=== PATIENT | male | born 1985 | race Caucasian/White ===

== ENCOUNTER 2017-12-07 21:34 | Observation (INO) | payer OTHER ==
[2017-12-08] MEDS ORDERED: NS 0.9% 1000 ML* 1,000 ML IV ONE (00:09)
[2017-12-08] MEDS ORDERED: Ketorolac INJ* 30 MG/ML 1 ML VIAL IV PUSH ONE (00:09)
[2017-12-08] MEDS ORDERED: Ondansetron INJ* 2 MG/ML VIAL IV ONE (00:09)
[2017-12-08 00:45] LABS: EGFR Non-African American 87.6 (>60)
[2017-12-08 00:47] LABS: ABS Basophils 0 10^3/ul (0-0.2); ABS Eosinophils 0 10^3/ul (0-0.6); ABS Lymphocytes 1.2 10^3/ul (1.0-4.8); ABS Neutrophils 14.6 10^3/ul (1.5-7.7); ABS Nucleated RBC 0 10^3/ul; Eosinophil % 0.1 % (0-6); Hematocrit 44 % (42-52); Hemoglobin 15.3 g/dl (14.0-18.0); Lymphocyte % 7.3 % (25-47); Mean Corpuscular HGB Conc 35 g/dl (31-36); Mean Corpuscular Hemoglobin 33 pg (27-31); Mean Corpuscular Volume 94 fL (80-94); Mean Platelet Volume 8.3 um3 (7.4-10.4); Nucleated Red Blood Cells % 0; Platelet Count 210 10^3/ul (150-450); Red Blood Count 4.66 10^6/ul (4.0-5.4); Red Cell Distribution Width 13 % (10.5-15); White Blood Count 16.9 10^3/ul (3.5-10.8)
--- NOTE | 2017-12-08 01:40 | ED ---
GI/ HPI - HPI Summary HPI Summary: 32-year-old male presents with left lower quadrant pain for the past couple hours. He states it radiates up to his left flank. He denies any testicular pain. Denies any pain with urination. He denies any hematuria. He has history of kidney stones but states that this does not feel the same. He states nothing makes it better or worse. He admits nausea vomiting. He denies any diarrhea. Denies any previous belly surgeries. Denies any chest pain or shortness breath. He hasn't taking anything for his pain. - History of Current Complaint Chief Complaint: EDAbdPain Time Seen by Provider: 12/08/17 00:05 Stated Complaint: FLANK PAIN Pain Intensity: 6 - Allergy/Home Medications Allergies/Adverse Reactions: Allergies Allergy/AdvReac Type Severity Reaction Status Date / Time No Known Allergies Allergy Verified 12/07/17 21:46 Home Medications: Home Medications Magnesium [Magnesium Elemental] 30 mg PO BEDTIME 12/08/17 [History Confirmed ] PARoxetine HCL TAB* [Paxil TAB*] 20 mg PO QAM 12/08/17 [History Confirmed ] PMH/Surg Hx/FS Hx/Imm Hx Endocrine/Hematology History: Denies: Hx Anticoagulant Therapy Cardiovascular History: Denies: Hx Hypertension Infectious Disease History: No Infectious Disease History: Denies: Traveled Outside the [place] in Last 30 Days - Family History Known Family History: Positive: Hypertension - Social History Alcohol Use: Occasionally Substance Use Type: Reports: None Review of Systems Negative: Fever Negative: Chest Pain Negative: Shortness Of Breath Positive: Abdominal Pain, Vomiting, Nausea. Negative: Diarrhea Positive: flank pain. Negative: dysuria All Other Systems Reviewed And Are Negative: Yes Physical Exam Triage Information Reviewed: Yes Vital Signs On Initial Exam: Initial Vitals Temp Pulse Resp BP Pulse Ox 98.2 F 67 20 132/88 100 12/07/17 21:43 12/07/17 21:43 12/07/17 21:43 12/07/17 21:43 12/07/17 21:43 Vital Signs Reviewed: Yes Appearance: Positive: Well-Appearing Skin: Positive: Warm, Dry Head/Face: Positive: Normal Head/Face Inspection Eyes: Positive: Normal, Conjunctiva Clear Respiratory/Lung Sounds: Positive: Clear to Auscultation, Breath Sounds Present Cardiovascular: Positive: Normal, RRR Abdomen Description: Positive: Soft, CVA Tenderness (L), Other: - tenderness LLQ Bowel Sounds: Positive: Present Musculoskeletal: Positive: Normal Neurological: Positive: Normal Psychiatric: Positive: Normal Diagnostics - Vital Signs Vital Signs Temp Pulse Resp BP Pulse Ox 12/07/17 23:46 97.4 F 82 20 127/77 96 12/07/17 21:43 98.2 F 67 20 132/88 100 - Laboratory Lab Results: Lab Results 12/08/17 12/08/17 Range/Units 00:15 00:15 WBC 16.9 H (3.5-10.8) 10^3/ul RBC 4.66 (4.0-5.4) 10^6/ul Hgb 15.3 (14.0-18.0) g/dl Hct 44 (42-52) % MCV 94 (80-94) fL MCH 33 H (27-31) pg MCHC 35 (31-36) g/dl RDW 13 (10.5-15) % Plt Count 210 (150-450) 10^3/ul MPV 8.3 (7.4-10.4) um3 Neut % (Auto) 86.4 H (38-83) % Lymph % (Auto) 7.3 L (25-47) % [place] % (Auto) 6.1 (0-7) % Eos % (Auto) 0.1 (0-6) % Baso % (Auto) 0.1 (0-2) % Absolute Neuts (auto) 14.6 H (1.5-7.7) 10^3/ul Absolute Lymphs (auto) 1.2 (1.0-4.8) 10^3/ul Absolute Monos (auto) 1.0 H (0-0.8) 10^3/ul Absolute Eos (auto) 0 (0-0.6) 10^3/ul Absolute Basos (auto) 0 (0-0.2) 10^3/ul Absolute Nucleated RBC 0 10^3/ul Nucleated RBC % 0 Sodium 137 (133-145) mmol/L Potassium 3.2 L (3.5-5.0) mmol/L Chloride 104 (101-111) mmol/L Carbon Dioxide 25 (22-32) mmol/L Anion Gap 8 (2-11) mmol/L BUN 15 (6-24) mg/dL Creatinine 0.99 (0.67-1.17) mg/dL Est GFR ( Amer) 112.7 (>60) Est GFR (Non-Af Amer) 87.6 (>60) BUN/Creatinine Ratio 15.2 (8-20) Glucose 120 H (70-100) mg/dL Calcium 9.7 (8.6-10.3) mg/dL Total Bilirubin 0.50 (0.2-1.0) mg/dL AST 16 (13-39) U/L ALT 17 (7-52) U/L Alkaline Phosphatase 66 (34-104) U/L C-React Prot High Sens 0.98 mg/L Total Protein 7.2 (6.4-8.9) g/dL Albumin 4.6 (3.2-5.2) g/dL Globulin 2.6 (2-4) g/dL Albumin/Globulin Ratio 1.8 (1-3) Lipase 16 (11.0-82.0) U/L Result Diagrams: 12/08/17 06:19 12/08/17 06:19 Lab Statement: Any lab studies that have been ordered have been reviewed, and results considered in the medical decision making process. - CT abd CT Interpretation: Positive (See Comments) - 9.5 mm proximal left ureteral stone at the UVJ junction causing mild to moderate hydronephrosis. Also mesentery panniculitis. CT Interpretation Completed By: Radiologist Re-Evaluation - Re-Evaluation First Eval Re-Evaluation Time: 01:43 Change: Improved Comment: no longer naseuous, pain improved. GIGU Course/Dx - Course Course Of Treatment: 32-year-old male presents with left lower quadrant pain for the past couple hours. He states it radiates up to his left flank. He denies any testicular pain. Denies any pain with urination. He denies any hematuria. He has history of kidney stones but states that this does not feel the same. He states nothing makes it better or worse. He admits nausea vomiting. He denies any diarrhea. Denies any previous belly surgeries. Denies any chest pain or shortness breath. He hasn't taking anything for his pain. On exam tenderness left lower quadrant and left flank. Labs white blood cell count 16. CRP normal. urine shows no infection. Ct shows 9.5mm proximal left ureteral stone at left UVJ. no urology at moment but will be on in the morning. patient wants to go home but discussed with dr ceja who states that best if patient is admitted. patient agrees to be admitted. dr ceja to admit patient. - Diagnoses Differential Diagnoses - Male: Pyelonephritis, Ureteral Calculi, Urinary Tract Infection Provider Diagnoses: Ureteral stone Discharge - Sign-Out/Discharge Documenting (check all that apply): Discharge - Discharge Plan Condition: Stable Disposition: ADMITTED TO [facility] - Billing Disposition and Condition Condition: STABLE [place] [facility] [place]
[2017-12-08 02:35] LABS: Urine Appearance Cloudy; Urine Blood 3+ (Negative); Urine Color Yellow; Urine Ketones Trace (Negative); Urine Protein 1+(30 mg/dL) (Negative); Urine Red Blood Cell 3+(>10/hpf) (Absent); Urine Specific Gravity 1.023 (1.010-1.030); Urine Urobilinogen Positive (Negative); Urine White Blood Cell 1+(6-10/hpf) (Absent)
[2017-12-08] MEDS ORDERED: Morphine INJ* 2 MG/ML 1 ML CARPUJECT IV PRN ×2 (02:52→03:05)
[2017-12-08] MEDS ORDERED: Ondansetron INJ* 2 MG/ML VIAL IV PRN ×2 (02:52→19:39)
[2017-12-08] MEDS ORDERED: Acetaminophen SUPP* 650 MG SUPP PR PRN (02:52)
[2017-12-08] MEDS ORDERED: LORazepam INJ* 2 MG/ML 1 ML VIAL IV PRN (02:52)
[2017-12-08] MEDS ORDERED: Morphine INJ* 2 MG/ML 1 ML CARPUJECT IV ONE (03:05)
--- NOTE | 2017-12-08 03:23 | HP ---
H&P (Free Text) History and Physical: PCP: none Date/Time: 12/08/2017 0250 CC: L flank pain HPI: Mr Goncalves is a 32YO male HX urolithiasis reporting onset of L flank pain yesterday waxing & waning becoming severe today and radiating into the left abdomen with associated N/V. He denies subjective F/C, black or bloody emesis, B /U/F of urine, or other issues. Evaluation reveals a 9.5 proximal L nephrolith with obstruction. PMedHx urolithiasis asthma tobacco use disorder Medications Nursing to reconcile. Allergies No Known Allergies Allergy (Verified 12/07/17 21:46) PSurgHx tonsillectomy SocHx: 2.5PPD cigarettes w/ >20 PYHX, rare alcohol, no recreational drugs; single, 3 children; unemployed; full code status FamHx: Mother; alive, 55YO, emphysema, gout, & CAD; Father: 52 2nd CAD w/ COPD; 1/2 brothers x2 & 1/2 sisters x2: health status unknown ROS: as above, otherwise reviewed and all were negative vitals: Vital Signs Temp 36.3 C 12/07/17 23:46 Pulse 72 12/08/17 03:00 Resp 20 12/08/17 03:16 BP 130/74 12/08/17 03:00 Pulse Ox 100 12/08/17 03:00 Intake & Output 12/07/17 12/07/17 12/08/17 11:59 23:59 11:59 Intake Total 1000 Balance 1000 Weight 90.718 kg Intake: IV Fluids 1000 Constitutional: NAD, normally developed, overweight white male HEENM: atraumatic; sclera/conjunctiva: anicteric/clear; hearing: clinically intact; oropharynx: clear, mucosa moist Neck: soft tissue: non-tender; thyroid: normal Pulmonary: clear to auscultation bilaterally, good aeration, no accessory muscle use CV: RR/RR, normal S1S2, no carotid bruit, no jugular venous distention, 2+ B DP/ PT, no edema Abdominal: soft, non-distended, non-tender, no rebound/guarding/rigidity, normoactive bowel sounds, no hepatosplenomegaly or masses, no costovertebral angle tenderness Musculoskeletal: general: grossly intact, no tenderness w/ palpation Integumental: normal appearance and texture of exposed skin Psychiatric orientation: AA&O to PPS affect: calm mood: cooperative eye contact: fair content: reliable responses: timely insight: fair Testing: Lab Results 12/08/17 12/08/17 12/08/17 Range/Units 00:15 00:15 02:06 WBC 16.9 H (3.5-10.8) 10^3/ul RBC 4.66 (4.0-5.4) 10^6/ul Hgb 15.3 (14.0-18.0) g/dl Hct 44 (42-52) % MCV 94 (80-94) fL MCH 33 H (27-31) pg MCHC 35 (31-36) g/dl RDW 13 (10.5-15) % Plt Count 210 (150-450) 10^3/ul MPV 8.3 (7.4-10.4) um3 Neut % (Auto) 86.4 H (38-83) % Lymph % (Auto) 7.3 L (25-47) % [place] % (Auto) 6.1 (0-7) % Eos % (Auto) 0.1 (0-6) % Baso % (Auto) 0.1 (0-2) % Absolute Neuts (auto) 14.6 H (1.5-7.7) 10^3/ul Absolute Lymphs (auto) 1.2 (1.0-4.8) 10^3/ul Absolute Monos (auto) 1.0 H (0-0.8) 10^3/ul Absolute Eos (auto) 0 (0-0.6) 10^3/ul Absolute Basos (auto) 0 (0-0.2) 10^3/ul Absolute Nucleated RBC 0 10^3/ul Nucleated RBC % 0 Sodium 137 (133-145) mmol/L Potassium 3.2 L (3.5-5.0) mmol/L Chloride 104 (101-111) mmol/L Carbon Dioxide 25 (22-32) mmol/L Anion Gap 8 (2-11) mmol/L BUN 15 (6-24) mg/dL Creatinine 0.99 (0.67-1.17) mg/dL Est GFR ( Amer) 112.7 (>60) Est GFR (Non-Af Amer) 87.6 (>60) BUN/Creatinine Ratio 15.2 (8-20) Glucose 120 H (70-100) mg/dL Calcium 9.7 (8.6-10.3) mg/dL Total Bilirubin 0.50 (0.2-1.0) mg/dL AST 16 (13-39) U/L ALT 17 (7-52) U/L Alkaline Phosphatase 66 (34-104) U/L C-React Prot High Sens 0.98 mg/L Total Protein 7.2 (6.4-8.9) g/dL Albumin 4.6 (3.2-5.2) g/dL Globulin 2.6 (2-4) g/dL Albumin/Globulin Ratio 1.8 (1-3) Lipase 16 (11.0-82.0) U/L Urine Color Yellow Urine Appearance Cloudy Urine pH 6.0 (5-9) Ur Specific [place] 1.023 (1.010-1.030) Urine Protein 1+(30 mg/dl) A (Negative) Urine Ketones Trace A (Negative) Urine Blood 3+ A (Negative) Urine Nitrate Negative (Negative) Urine Bilirubin Negative (Negative) Urine Urobilinogen Positive A (Negative) Ur Leukocyte Esterase Negative (Negative) Urine WBC (Auto) 1+(6-10/hpf) A (Absent) Urine RBC (Auto) 3+(>10/hpf) A (Absent) Ur Squamous Epith Cells Present A (Absent) Calcium Oxalate Crystal Present A (Absent) Urine Bacteria Absent (Absent) Urine Glucose Negative (Negative) CT abd/pel WO, personally reviewed: 9.5mm obstructing proximal L ureterolith Impression: 32M presenting with a 9.5mm obstructing proximal L ureterolith DIAGNOSIS & PLAN Primary 9.5mm obstructing proximal L ureterolith : IVFs : pain control : urology consult in AM Secondary asthma : albuterol PRN tobacco use disorder : cessation advised, low motivation Admission Rational: observation for ureteral obstruction DVTp: PETER Code Status: full
[2017-12-08] MEDS ORDERED: Potassium Chlor TAB* 20 MEQ TAB.ER PO ONE (03:40)
[2017-12-08] MEDS: NS 0.9% 1000 ML* 1,000 ML IV SCH ×2 (04:19→13:00)
[2017-12-08] MEDS ORDERED: Nicotine Inhaler* 10 MG AMP INH PRN (04:54)
[2017-12-08] MEDS ORDERED: Mouth Piece, Nicotine* 1 EACH CARTRIDGE INH PRN (04:54)
[2017-12-08 06:39] LABS: Hematocrit 42 % (42-52); Hemoglobin 14.8 g/dl (14.0-18.0); Mean Corpuscular HGB Conc 36 g/dl (31-36); Mean Corpuscular Hemoglobin 34 pg (27-31); Mean Corpuscular Volume 94 fL (80-94); Mean Platelet Volume 7.8 um3 (7.4-10.4); Platelet Count 198 10^3/ul (150-450); Red Blood Count 4.42 10^6/ul (4.0-5.4); Red Cell Distribution Width 13 % (10.5-15); White Blood Count 10.3 10^3/ul (3.5-10.8)
[2017-12-08 07:04] LABS: EGFR Non-African American 113.7 (>60)
--- NOTE | 2017-12-08 08:11 | RAD ---
CLINICAL HISTORY: Left flank pain, left lower quadrant pain COMPARISON: None TECHNIQUE: Multiple contiguous axial CT scans were obtained of the abdomen and pelvis, without intravenous contrast enhancement. Coronal and sagittal multiplanar reformations are submitted for review. Oral contrast was not administered. FINDINGS: The study is limited by the lack of intravenous contrast. This limits evaluation of the solid organs and vasculature. LUNG BASES: The lung bases are clear. LIVER: The liver is normal in shape, size, contour, and attenuation. BILE DUCTS: There is no intrahepatic or extrahepatic biliary dilatation. GALLBLADDER: The gallbladder is normal, without pericholecystic inflammatory change. PANCREAS: The pancreas is normal, without mass or ductal dilatation. SPLEEN: Normal in size and appearance. UPPER GI TRACT: Evaluation of the gastrointestinal tract is limited by incomplete gastric distention. The upper GI tract is unremarkable. SMALL BOWEL AND MESENTERY: The small bowel is normal in contour, course, and caliber. There is no obstruction or dilatation. There is mild stranding of the fat of the mesentery at the root of small bowel with multiple small mesenteric lymph nodes. COLON: The colon is normal in contour, course, caliber. There is no pericolonic inflammatory change. ADRENALS: Normal bilaterally. KIDNEYS: There is a 0.9 cm calculus of the left UPJ. There is mild to moderate left hydronephrosis. BLADDER: The bladder is smooth in contour. PELVIC ORGANS: The prostate gland is normal. The seminal vesicles are symmetric. AORTA: The aorta is normal. IVC: Unremarkable LYMPH NODES: As noted above, there are multiple small mesenteric lymph nodes at the root of the small bowel mesentery. There is no lymphadenopathy by size criteria. ABDOMINAL WALL: There is no evidence for abdominal wall hernia. BONES AND SOFT TISSUES: Mild degenerative changes are noted at L4-L5 and L5-S1. OTHER: None IMPRESSION: 1. 0.9 CM LEFT UPJ STONE WITH LEFT-SIDED HYDRONEPHROSIS. 2. MESENTERIC PANNICULITIS.
[2017-12-08] MEDS ORDERED: Influenza VAC *QUAD* 2017-18* 0.5 ML SYRINGE IM ONE (09:00)
[2017-12-08] MEDS ORDERED: Pantoprazole IV* 40 MG IV SCH (09:00)
[2017-12-08] MEDS ORDERED: Docusate CAP* 100 MG PO SCH (09:00)
--- NOTE | 2017-12-08 10:51 | PN ---
Objective Active Medications: Acetaminophen (Tylenol Supp*) 650 mg IL Q6H PRN PRN Reason: FEVER/PAIN Device (Nicotine Mouth Piece*) 1 each INH .USE WITH NICOTROL PRN PRN Reason: CRAVING Docusate Sodium (Colace Cap*) 200 mg PO BID [facility] Last Admin: 12/08/17 09:12 Dose: Not Given Sodium Chloride (Ns 0.9% 1000 Ml*) 1,000 mls @ 125 mls/hr IV PER RATE [facility] Last Admin: 12/08/17 04:19 Dose: 125 mls/hr Lorazepam (Ativan Inj*) 0.5 mg IV BEDTIME PRN PRN Reason: SLEEP Morphine Sulfate (Morphine Inj (Syringe)*) 2 mg IV Q2H PRN PRN Reason: PAIN - MILD Nicotine (Nicotine Inhaler*) 10 mg INH Q2H PRN PRN Reason: CRAVING Ondansetron HCl (Zofran Inj*) 4 mg IV Q6H PRN PRN Reason: NAUSEA Pantoprazole Sodium (Protonix Iv*) 40 mg IV DAILY [facility] Last Admin: 12/08/17 08:58 Dose: 40 mg Vital Signs - 8 hr 12/08/17 12/08/17 12/08/17 03:00 03:16 03:30 Temperature Pulse Rate 72 73 Respiratory 20 Rate Blood Pressure 130/74 113/72 (mmHg) O2 Sat by Pulse 100 99 Oximetry 12/08/17 12/08/17 12/08/17 03:54 04:43 04:46 Temperature 97.9 F 97.5 F Pulse Rate 70 76 Respiratory 16 16 16 Rate Blood Pressure 113/72 109/80 (mmHg) O2 Sat by Pulse 97 99 Oximetry 12/08/17 12/08/17 05:32 07:35 Temperature 97.6 F Pulse Rate 59 Respiratory 16 Rate Blood Pressure (mmHg) O2 Sat by Pulse 99 Oximetry Oxygen Devices in Use Now: None Result Diagrams: 12/08/17 06:19 12/08/17 06:19 Additional Lab and Data: Lab Results 12/08/17 12/08/17 Range/Units 00:15 00:15 WBC 16.9 H (3.5-10.8) 10^3/ul RBC 4.66 (4.0-5.4) 10^6/ul Hgb 15.3 (14.0-18.0) g/dl Hct 44 (42-52) % MCV 94 (80-94) fL MCH 33 H (27-31) pg MCHC 35 (31-36) g/dl RDW 13 (10.5-15) % Plt Count 210 (150-450) 10^3/ul MPV 8.3 (7.4-10.4) um3 Neut % (Auto) 86.4 H (38-83) % Lymph % (Auto) 7.3 L (25-47) % [place] % (Auto) 6.1 (0-7) % Eos % (Auto) 0.1 (0-6) % Baso % (Auto) 0.1 (0-2) % Absolute Neuts (auto) 14.6 H (1.5-7.7) 10^3/ul Absolute Lymphs (auto) 1.2 (1.0-4.8) 10^3/ul Absolute Monos (auto) 1.0 H (0-0.8) 10^3/ul Absolute Eos (auto) 0 (0-0.6) 10^3/ul Absolute Basos (auto) 0 (0-0.2) 10^3/ul Absolute Nucleated RBC 0 10^3/ul Nucleated RBC % 0 Sodium 137 (133-145) mmol/L Potassium 3.2 L (3.5-5.0) mmol/L Chloride 104 (101-111) mmol/L Carbon Dioxide 25 (22-32) mmol/L Anion Gap 8 (2-11) mmol/L BUN 15 (6-24) mg/dL Creatinine 0.99 (0.67-1.17) mg/dL Est GFR ( Amer) 112.7 (>60) Est GFR (Non-Af Amer) 87.6 (>60) BUN/Creatinine Ratio 15.2 (8-20) Glucose 120 H (70-100) mg/dL Calcium 9.7 (8.6-10.3) mg/dL Total Bilirubin 0.50 (0.2-1.0) mg/dL AST 16 (13-39) U/L ALT 17 (7-52) U/L Alkaline Phosphatase 66 (34-104) U/L C-React Prot High Sens 0.98 mg/L Total Protein 7.2 (6.4-8.9) g/dL Albumin 4.6 (3.2-5.2) g/dL Globulin 2.6 (2-4) g/dL Albumin/Globulin Ratio 1.8 (1-3) Lipase 16 (11.0-82.0) U/L Assess/Plan/Problems-Billing Assessment: 32 year old male presenting with a 9.5mm obstructing proximal L ureterolith and intractable pain. - Patient Problems (1) Urolithiasis Code(s): N20.9 - URINARY CALCULUS, UNSPECIFIED SNOMED Code(s): 06107777 Comment: - IVF, pain control, zofran - Awaiting recommendations from Urology - NPO for now (2) Asthma Code(s): J45.909 - UNSPECIFIED ASTHMA, UNCOMPLICATED SNOMED Code(s): 932670025 Comment: - Should stop smoking - Albuterol PRN (3) Tobacco abuse Code(s): Z72.0 - TOBACCO USE SNOMED Code(s): 931051159 Comment: - Counseled. - Nicotine inhaler PRN. (4) DVT prophylaxis Code(s): YFZ8447 - SNOMED Code(s): 862814715 Comment: - Ambulatory, SCDs if going to [place] (5) Full code status Code(s): Z78.9 - OTHER SPECIFIED HEALTH STATUS SNOMED Code(s): 819368896 Status and Disposition: Remain inpatient. Counseling and/or Coordination of Care Minutes: coordinated with patient and
[2017-12-08] MEDS ORDERED: Ondansetron INJ* 2 MG/ML VIAL ONE (18:10)
[2017-12-08] MEDS ORDERED: Midazolam* 1 MG/ML 5 ML VIAL (5 MG) ONE (18:10)
[2017-12-08] MEDS ORDERED: fentaNYL* 50 MCG/ML 2 ML VIAL (100 MCG VIAL) ONE (18:10)
[2017-12-08] MEDS ORDERED: Propofol* 10 MG/ML 20 ML BTL IV PUSH ONE (18:10)
[2017-12-08] MEDS ORDERED: Ketorolac INJ* 30 MG/ML 1 ML VIAL ONE (18:10)
[2017-12-08] MEDS ORDERED: Lidocaine 2% PF * 5 ML VIAL ONE (18:10)
[2017-12-08] MEDS ORDERED: Dexamethasone IV* 4 MG/ML 1 ML (4 MG) ONE (18:10)
[2017-12-08] MEDS ORDERED: cefTRIAXone(*) 2 GM in NS 0.9% 100 ML* 100 ML IVPB ONE (19:00)
[2017-12-08] MEDS ORDERED: oxyCODONE/Acetamin 5/325 MG* TAB PO PRN (19:39)
[2017-12-08] MEDS ORDERED: fentaNYL* 50 MCG/ML 2 ML VIAL (100 MCG VIAL) IV PRN (19:39)
[2017-12-08] MEDS ORDERED: Naloxone* 0.4 MG/ML 1 ML VIAL IV PRN (19:39)
[2017-12-08 20:07] VITALS: BP 122/75
--- NOTE | 2017-12-08 21:54 | RAD ---
CPT II Codes: 6045F INDICATION: Left-sided nephrolithiasis TECHNIQUE: Intraoperative fluoroscopy was provided during retrograde nephrostogram with stapling is been. FINDINGS: 5 spot films depict retrograde nephrostogram showing mild dilatation of the collecting system followed by anatomic placement of a left ureteral stent. Fluoroscopy time: 8 seconds IMPRESSION: As above.
--- NOTE | 2017-12-08 21:55 | RAD ---
INDICATION: Less stent placement COMPARISON: Same day nephrostogram TECHNIQUE: A single AP view of the abdomen was obtained FINDINGS: A left ureteral stent is anatomically aligned. There is linear calcification measuring 7 mm adjacent to the proximal loop of the J-tube at the left kidney collecting system. IMPRESSION: INTERVAL PLACEMENT OF A LEFT-SIDED URETERAL STENT.
--- NOTE | 2017-12-09 03:38 | OP ---
DATE OF OPERATION: 12/08/17 - ROOM #420 DATE OF : 85 SURGEON: Zeke Alvares MD ANESTHESIOLOGIST: Jared Thomas MD ANESTHESIA: General. PRE-OP DIAGNOSIS: Left ureteral calculus. POST-OP DIAGNOSIS: Left ureteral calculus. OPERATIVE PROCEDURES: 1. Cystoscopy. 2. Left retrograde pyelography and placement of left ureteral stent (6-Macedonian). INDICATION FOR PROCEDURE: Mr. Goncalves is a 32-year-old white male who had spontaneously passed ureteral calculi in the past. He presented to the emergency room early this morning with symptoms of left renal colic. Noncontrast CT of the abdomen and pelvis showed 1 cm calculus at the level of the left ureteropelvic junction associated with left hydronephrosis. No other renal calculi were noted and no other abnormalities were seen. Because of the above history, the size of the stone and its location, the above procedure was advised and accepted. PATHOLOGY AT CYSTOSCOPY: The penile and bulbar urethrae looked normal. The prostatic urethra was short and open. Examination of the bladder showed no suspicious bladder lesions. There were no papillary lesions and no areas to suggest carcinoma in situ. The ureteral orifices looked normal. Upon left retrograde pyelography, there was moderate left hydronephrosis. DESCRIPTION OF PROCEDURE: After successful general anesthesia, the patient was placed in the lithotomy position and was prepped and draped for cystoscopy. Cystoscopy was performed. Because of history of chronic smoking, a careful cystoscopy was performed and no bladder pathology noted. A flexible-tip guidewire was then introduced into the left ureter without difficulty, and positioned in the area of the renal pelvis. Size 5-Macedonian open- ended catheter was fed on top of the guidewire and positioned in the renal pelvis and retrograde pyelography was performed. A 6-Macedonian stent was then placed with the proximal end coiling in the renal pelvis and the distal end coiling inside the bladder. There was good drainage of contrast from the kidney and no extravasation. The patient tolerated the procedure well and left the operating room in good condition. The plan is to obtain a KUB before his discharge. Definitive treatment of the stone will depend upon the KUB findings. [id number]/[facility] #: [id number] [facility]OSPITALChaparro
--- NOTE | 2017-12-19 04:36 | DS ---
DISCHARGE SUMMARY: DATE OF ADMISSION: 12/08/17 DATE OF DISCHARGE: 12/08/17 FINAL DIAGNOSIS: Left ureteral calculus. OPERATIONS: 1. Cystoscopy. 2. Placement of left ureteral stent on 12/08/17. HISTORY: Mr. Goncalves is a 32-year-old male who presented to the emergency room early the morning of his admission with symptoms of left renal colic. He had no fever or chills. Noncontrast CT of the abdomen and pelvis showed 1 cm calculus in the proximal left ureter associated with hydronephrosis. PAST MEDICAL HISTORY: Relevant for spontaneous passage of renal calculi in the past. He has not had any other urological problems. He is a chronic heavy smoker of two and half packs per day. He is otherwise healthy. He is on no chronic medications and he denies any allergies to medications. LABORATORY DATA: His lab work on admission showed white count of 17,000 with 86 % neutrophils. His chemistries were normal, in particular the creatinine was 1. Serum calcium was 9.7. Urinalysis showed +3 blood, +1 protein, +1 esterase and negative otherwise. PHYSICAL EXAMINATION: Done by Dr. Araujo on his admission. He was in significant degree of pain. His vital signs were normal. He had left flank tenderness. COURSE IN HOSPITAL: Patient was admitted for IV fluids and pain control. Urology consultation was obtained. Patient was taken to the operating room that same day and had a cystoscopy and placement of left ureteral stent. He did very well following the procedure and was discharged home. Postoperative KUB showed the stone to have migrated into the renal pelvis. Patient will be followed in my office, and will require shockwave lithotripsy and removal of the ureteral stent at a later date. [id number]/[facility] #: [id number] [facility] SYSTEM[facility]arro
== END 2017-12-08 20:50 | disposition home or self-care (01) ==
LOC: ED 21:34 → MED 12-08 02:50
PROVIDERS: ADMIT Hospitalist; ATTEND Urology
PROC: BT1FZZZ Fluoroscopy of Left Kidney, Ureter and Bladder (ICD-10-PCS; 2017-12-08)
PROC: 0WHR8YZ Insertion of Other Device into Genitourinary Tract, Via Natural or Artificial Opening Endoscopic (ICD-10-PCS; 2017-12-08)
PROC: 0T778DZ Dilation of Left Ureter with Intraluminal Device, Via Natural or Artificial Opening Endoscopic (ICD-10-PCS; principal; 2017-12-08 18:30)
DX: N13.2 Hydronephrosis with renal and ureteral calculous obstruction (principal); F17.210 Nicotine dependence, cigarettes, uncomplicated; Z87.442 Personal history of urinary calculi; Z82.49 Family history of ischemic heart disease and other diseases of the circulatory system; J45.909 Unspecified asthma, uncomplicated; Z23 Encounter for immunization
CPT/HCPCS: 36415; 74018; 74176; 74420; 80048; 80053; 81003; 81015; 83690; 85025; 85027; 86141; 87086; 90686; 96374; 96375; 96376; 99283; A9270-GY; C1876; G0378; J0696; J1100; J1885; J2250; J2270; J2405; J2704; J3010

== ENCOUNTER 2017-12-22 06:13 | Day surgery (SDC) | payer OTHER ==
--- NOTE | 2017-12-16 23:15 | HP ---
HISTORY AND PHYSICAL: DATE OF PLANNED ADMISSION AND SURGERY: 12/22/17 HISTORY OF PRESENT ILLNESS: Mr. Goncalves is a 32-year-old white male who is admitted for left renal calculus, status post placement of left ureteral stent for shockwave lithotripsy of left renal calculus and possible cystoscopy and removal of left ureteral stent. Mr. Goncalves has past history of renal calculus disease and he had passed stones spontaneously in the past. He was admitted on 12/08/17 with symptoms of left renal colic. A noncontrast CT of the abdomen and pelvis showed 1 cm calculus in the proximal left ureter associated with moderate left hydronephrosis. He was taken to the operating room that day and had a cystoscopy and placement of left ureteral stent. Postoperative KUB showed the stone to have migrated into the left renal pelvis. The patient has been doing fine since that procedure. He is now being admitted for definitive treatment of the stone. PAST MEDICAL HISTORY AND SYSTEM REVIEW: He is a chronic heavy smoker. He denies any cardiac or pulmonary diseases or symptoms. He is on no chronic medications and he denies any allergies to medications. PHYSICAL EXAMINATION GENERAL: A pleasant and healthy looking white male. VITAL SIGNS: Normal. LUNGS: Clear. HEART: Regular and rhythmic, no murmurs. ABDOMEN: Soft, no masses, no tenderness. Mild left CVA tenderness. EXTERNAL GENITALIA: He is circumcised, no penile lesions. Normal testes and no inguinal hernias. IMPRESSION: 1 cm calculus in the left renal pelvis. Status post placement of left ureteral stent. Chronic smoking. PLAN: Shockwave lithotripsy of the left renal calculus. If there is good fragmentation of the stone, cystoscopy and removal of the left ureteral stent will be performed. I discussed the above plan with the patient and all his questions were answered. [id number]/[facility] #: [id number] GAVI
[~2017-12-22 06:13] MED LIST: Buffered Lidocaine 0.9% SYRIN* 5 ML/SYR SYRINGE INTRADERM ONE; DiMENhydriNATE IV* 50 MG/ML VIAL IV PUSH PRN; Famotidine IV* 10 MG/ML 2 ML (20 mg) IV ONE; Morphine INJ* 2 MG/ML 1 ML CARPUJECT IV PRN; Naloxone* 0.4 MG/ML 1 ML VIAL IV PRN; PROCHLORPERAZINE INJ 5 MG/ML 2 ML VIAL IV PRN; Scopolamine 1.5 mg* PATCH TRANSDERM PRN; fentaNYL* 50 MCG/ML 2 ML VIAL (100 MCG VIAL) IV PRN; oxyCODONE/Acetamin 5/325 MG* TAB PO PRN
[2017-12-22] MEDS ORDERED: cefTRIAXone(*) 2 GM ADDV.VIAL IVPB ONE (06:34)
[2017-12-22] MEDS ORDERED: Famotidine IV* 10 MG/ML 2 ML (20 mg) ONE (06:34)
[2017-12-22] MEDS ORDERED: cefTRIAXone(*) 2 GM in NS 0.9% 50 ML* 50 ML IVPB ONE (07:00)
[2017-12-22] MEDS ORDERED: fentaNYL* 50 MCG/ML 2 ML VIAL (100 MCG VIAL) ONE (07:14)
[2017-12-22] MEDS ORDERED: Midazolam* 1 MG/ML 5 ML VIAL (5 MG) ONE (07:14)
[2017-12-22] MEDS ORDERED: Lidocaine 2% JELLY* 6 ML JELLY TOPICAL ONE (07:27)
[2017-12-22] MEDS ORDERED: Propofol* 10 MG/ML 20 ML BTL IV PUSH ONE (07:47)
[2017-12-22] MEDS ORDERED: Dexamethasone IV* 4 MG/ML 1 ML (4 MG) ONE (07:47)
[2017-12-22] MEDS ORDERED: Lidocaine 2% PF * 5 ML VIAL ONE (07:47)
[2017-12-22] MEDS ORDERED: Ondansetron INJ* 2 MG/ML VIAL ONE (07:47)
[2017-12-22 09:34] VITALS: BP 129/81
--- NOTE | 2017-12-22 11:21 | OP ---
DATE OF OPERATION: 12/22/17 [facility] DATE OF : 85 SURGEON: Zeke Alvares MD ANESTHESIOLOGIST: Dr. Gerry May. ANESTHESIA: General. PRE-OP DIAGNOSES: 1. Left renal calculus (1 cm). 2. Status post placement left uretal stent. POST-OP DIAGNOSES: 1. Left renal calculus (1 cm). 2. Status post placement left uretal stent. OPERATIVE PROCEDURE: 1. Shockwave lithotripsy left renal calculus (1 cm). 2. Cystoscopy and removal of left ureteral stent. INDICATION FOR PROCEDURE: Mr. Goncalves is a 32-year-old white male who presented 2 weeks ago with symptoms of left renal colic and was noted on CT to have a 1-cm calculus in the proximal left ureter. The patient was taken to the operating room that same day and had placement of a left ureteral stent. Postoperative KUB showed the stone to have migrated into the renal pelvis. The patient did well and he is now being brought in for definitive treatment of the stone. PATHOLOGY AT FLUOROSCOPY: The left ureter stent was in good position. The left renal calculus had migrated into a lower pole calyx. At cystoscopy, the penile and bulbar urethrae looked normal. The prostatic urethra was short and open. Examination of the bladder showed the expected edema in the bladder mucosa adjacent to the left orifice where the stent was noted. DESCRIPTION OF PROCEDURE: After successful general anesthesia, the patient was placed in the supine position on the shockwave lithotripsy table. The calculus was visualized in both of the PA and the oblique x-ray views and the position of the patient and generator were adjusted to have the stone in the focus of the shockwaves. A total of 1,500 shocks were then delivered at a rate of 90 shocks per minute. A 3-minutes break was taken after the initial 300 shocks. The proper positioning and fragmentation of the stone were monitored periodically. At the completion of the treatment, there was very good fragmentation of the stone with the fragments taking the shape of the calyx. Decision was made to proceed with the stent removal. The patient was kept in the supine position and prepped and draped for a flexible cystoscopy. A 14 red rubber catheter was passed inside the bladder and the bladder was emptied and the catheter removed. Flexible cystoscopy performed. The stent was then grabbed and pulled out intact. The patient tolerated the procedure well and left the operating room in good condition. [id number]/[facility] #: [id number] MTDD
[2017-12-25] MEDS ORDERED: Scopolamine PATCH Remove* 1 NOTE MISC PATCH OFF ONE (05:55)
== END 2017-12-22 09:47 | disposition home or self-care (01) ==
LOC: OR 06:13
PROVIDERS: ATTEND Urology
DX: N20.0 Calculus of kidney (principal); Z72.0 Tobacco use
CPT/HCPCS: J0696; J1100; J2250; J2405; J2704; J3010